=== PATIENT | female | born 1990 | race Caucasian/White ===

== ENCOUNTER 2017-06-16 08:53 | Day surgery (SDC) | payer OTHER ==
[~2017-06-16 08:53] MED LIST: RINGER'S SOLUTION,LACTATED 1,000 ML IV PRN; ceFAZolin SODIUM 2 GM in DEXTROSE 5 % IN WATER 50 ML IV PRN
[2017-06-16] MEDS ORDERED: RINGER'S SOLUTION,LACTATED 1,000 ML IV ONE ×2 (09:15→11:40)
[2017-06-16] MEDS ORDERED: BUPIVACAINE HCL/EPINEPHRINE 10 ML VIAL IJ ONE (11:30)
[2017-06-16] MEDS ORDERED: RINGER'S SOLUTION,LACTATED 1,000 ML IV PRN (12:09)
[2017-06-16] MEDS: oxyCODONE HCL/ACETAMINOPHEN 1 TAB TABLET PO ONE ×2 (12:50→14:25)
[2017-06-16] MEDS ORDERED: ONDANSETRON HCL/PF 2 MG/ML VIAL IV ONE (13:00)
[2017-06-16] MEDS ORDERED: oxyCODONE HCL/ACETAMINOPHEN 1 TAB TABLET PO ONE (13:00)
[2017-06-16] MEDS ORDERED: oxyCODONE HCL/ACETAMINOPHEN 1 TAB TABLET ONE (14:22)
[2017-06-16 15:12] VITALS: BP 119/74
--- NOTE | 2017-06-16 17:47 | OR ---
Operative Report - Dictated Report Narrative: DATE OF OPERATION: 06/16/2017 PREOPERATIVE DIAGNOSIS: GERD symptoms. Biliary dyskinesia POSTOPERATIVE DIAGNOSIS: Normal EGD. Gallbladder pathology pending OPERATION: EGD with biopsy. Laparoscopic cholecystectomy SURGEON: JUAN Franco MD ANESTHESIA Gen. endotracheal Mallorie Salas CRNA INDICATIONS FOR PROCEDURE: The patient is a 26-year-old male referred by Dr. Mckinney. She has a 3 month history of pain in the right upper quadrant which radiates through to the back. Ultrasound revealed slightly thickened wall and a suggestion of sludge. Hepatobiliary scan reveals low ejection fraction of 9% . The patient also has significant GERD symptoms. FINDINGS: Normal EGD (CLOtest pending). Adhesions to the undersurface of the umbilicus and the undersurface of the right lobe of the liver. Gallbladder pathology pending NARRATIVE OF PROCEDURE: The patient was identified preoperatively. Prior to the administration of anesthetic a multidisciplinary timeout observed. 2 g of intravenous Ancef were administered. With the patient in the supine position, SCDs were placed, and general endotracheal anesthetic administered. EGD: The flexible fiberoptic gastroscope was advanced alongside the endotracheal tube into the posterior pharynx which appeared normal. The tube was seen to be in good position in those portions of the supraglottic larynx visualized appeared normal. The scope was advanced under direct vision into a normal- appearing esophagus. The esophagus appeared normal down to the gastroesophageal junction where the mucosal transition was sharp and minimally erythematous. The stomach was entered and insufflated with air. The gastric mucosa appeared grossly normal, there were no geovanna ulcerations or neoplastic lesions appreciated including a retroflex view of the gastric fundus. The scope was redirected toward the pylorus which was patent. The scope was advanced into the duodenal bulb which appeared normal. The scope was advanced further to the horizontal portion of the duodenum which appeared normal, specifically the villous architecture appeared well preserved and clear bile was present. The scope was slowly withdrawn through the duodenal bulb with confirmation and no active ulcer was present. The scope was withdrawn into the stomach and a hostess party sales representative biopsy obtained and submitted for CLOtest. The biopsy site appeared hemostatic. The insufflated air was removed from the stomach, the scope withdrawn from the patient, in this portion the procedure terminated. LAPAROSCOPIC CHOLECYSTECTOMY: The patient's adomen was prepped with Betadine solution and a generous operating field outlined with 4 sterile towels. The remainder the patient was covered with a sterile disposable drape. An infraumbilical skin incision was made. Dissection was carried along the umbilical stalk until the fascia of the linea alba was encountered. This was incised. The peritoneum was then elevated and incised to allow entry into the abdomen under direct vision. A Hussan cannula was placed, and the abdomen insufflated with CO2. The laparoscopic camera was introduced and the abdomen briefly explored. Those portions of the liver, stomach, colon and small bowel visualized appeared normal. There were omental adhesions to the undersurface of the anterior abdominal wall below the umbilicus. The gallbladder was not immediately visible. Next under direct vision 3 additional working ports were inserted through separate skin incisions, one in the subxiphoid, one in the right upper quadrant, and one in the right flank. The apex of the gallbladder was grasped and retracted cephalad. There were adhesions of omentum to the undersurface of the right lobe of the liver, however the gallbladder appeared grossly normal. The area of the cystic duct was developed. The cystic duct was dissected free for a sufficient distance for confident identification. It was doubly clipped and divided. The cystic artery was identified doubly clipped and divided. The gallbladder was then removed from the liver bed by retrograde electrocautery dissection. Prior to severing the last attachments of the gallbladder the liver bed was inspected and found to be hemostatic with no evidence of bile leak. The previously placed clips were seen to be intact. The right upper quadrant was suctioned clean. The last attachments of the gallbladder were divided. It was placed in an Endobag and parked in the right upper quadrant. Inspection of the area below the umbilicus revealed omental adhesions, however they did not appear to predisposed to cause internal herniation and were left intact. The smaller working ports were withdrawn under direct vision to ensure entry site hemostasis. The gallbladder was removed in conjunction with the Hussan cannula. The pneumoperitoneum was allowed to escape, and after receiving a correct sponge needle and instrument count attention was turned to closing the abdomen. The fascia and peritoneum at the umbilicus were approximated with interrupted sutures of #1 Vicryl. Skin incisions were approximated with interrupted vertical mattress sutures of 4-0 nylon. The operative sites were washed and dried. Dressings of Bactroban ointment and large Band-Aids were applied to the small port sites. The umbilical incision was dressed with Bactroban ointment, 2 x 2, large Band-Aid and Medipore tape. The operative procedure was terminated at this point. The patient tolerated the anesthetic and procedure well without complication. There was no measurable blood loss. The gallbladder was submitted to pathology. 0.5% Marcaine with epinephrine was used for local anesthetic infiltration. The patient was transferred to the recovery room awake, extubated, and in stable condition. The patient remained stable throughout a period of postoperative observation. She was able to tolerate po intake and was up without assistance. Her pain was controlled with po Percocet. Her dressings remained dry. I reviewed the operative findings with her and she was given copies of the photographs which appear in the medical record. The patient was discharged home with instructions not to lift and not to drive. She is to leave the current dressings dry and intact for 48 hours, but then may shower and change the dressings daily or as needed. She was given phone numbers to call prn signs of wound infection or hematoma. The patient was given a prescription for Percocet 5/325 mg #30 1-2 po Q4-6hrs prn pain. A return office appointment was made for 1 week. Reviewed and electronically signed
== END 2017-06-16 08:54 | disposition home or self-care (01) ==
LOC: AMB 08:53
PROVIDERS: ATTEND Surgery
PROC: 0DB68ZX Excision of Stomach, Via Natural or Artificial Opening Endoscopic, Diagnostic (ICD-10-PCS; principal; 2017-06-16 10:15)
PROC: 0FT44ZZ Resection of Gallbladder, Percutaneous Endoscopic Approach (ICD-10-PCS; 2017-06-16 10:15)
DX: K81.1 Chronic cholecystitis (principal); K82.8 Other specified diseases of gallbladder; Z68.27 Body mass index [BMI] 27.0-27.9, adult
CPT/HCPCS: 43239; 47562; 87081; J2405

== ENCOUNTER 2019-05-13 15:18 | Inpatient (IN) ==
[2019-05-13 16:15] LABS: Cocaine Ur Negative (NEGATIVE); Urine Barbiturate Negative (NEGATIVE); Urine Benzodiazepines Negative (NEGATIVE); Urine Opiates Negative (NEGATIVE); Urine PCP Negative (NEGATIVE); Urine THC Negative (NEGATIVE)
[2019-05-13] MEDS ORDERED: DEXTROSE 5%-LACTATED RINGERS 1,000 ML IV PRN (16:19)
[2019-05-13] MEDS ORDERED: OXYTOCIN/DEXTROSE 5%-WATER 30 UNITS/500 ML BAG IV ONE ×2 (16:29→19:02)
--- NOTE | 2019-05-13 16:46 | HP ---
Chief Complaint - Chief Complaint Date of Service: 05/13/19 Time of Service: 16:33 Chief Complaint: contractions History of Present Illness: 28 yo at 37 weeks presents to L&D in labor. Patient was seen in office today for routine OB visit and was noted to be dilated to 7cm/80/+1 with virtually no pain. This without complications. Rh positive Rubella immune GBS negative Medical History (Updated 03/12/19 @ 09:00 by Sourav Motley RN) Anemia affecting Onset Date: 02/01/162015 & 2019 - w/pregnancies Chronic pelvic pain in female Onset Date: 11/22/14 Generalized headaches Onset Date: ~2016 Appendicitis Onset Date: 10/31/12 Cellulitis of finger Onset Date: Unknown Dysmenorrhea Onset Date: 11/22/14 Dyspareunia due to medical condition in female Onset Date: 11/22/14 Fatigue Onset Date: 02/28/15 Hyperemesis gravidarum before end of 22 week gestation with carbohydrate depletion Onset Date: 09/14/15 Leg pain Onset Date: 02/28/15 Lightheadedness Onset Date: 11/22/14 Ovarian cyst Onset Date: Unknown Pneumonia Onset Date: Unknown Postcoital bleeding Onset Date: 11/22/14 Short cervix during in third trimester Onset Date: 02/27/16 Threatened premature labor in third trimester Onset Date: 02/27/16 Surgical History: Surgical History (Updated 02/27/18 @ 07:36 by Leyda Chang CMA) H/O adenoidectomy Onset Date: ~2013 H/O esophagogastroduodenoscopy Onset Date: 06/16/17 biopsy - [place] clotest negative History of colposcopy Onset Date: 12/13/14 for post coital bleeding History of laparoscopic appendectomy Onset Date: 10/31/12 [place] Hx laparoscopic cholecystectomy Onset Date: 06/16/17 [place] Hx of tonsillectomy Onset Date: ~01/2014 Family History: Family History (Updated 02/27/18 @ 07:39 by Leyda Chang CMA) Brother Alive and well Father Bipolar disorder Lung cancer Mother Hypertension CVA (cerebral vascular accident) possible History of cholecystectomy Grandfather , maternal Gallbladder cancer Grandfather , paternal Liver cancer Grandmother Hypertension maternal Sister Hypothyroidism 3 sisters - 2 with Hypothyroidism Social History: (Last Reviewed 05/13/19 @ 15:45 by Josselyn Dwyer RN) Social History: adopted: No half-way: No Marital status: household members: children, spouse number of children: 1 current occupational status: employed current occupation: [employer] current occupational exposures/hazards: No Highest education level completed: some college, no degree Sexually Active: Yes Service: No Tobacco: Smoking Status: Never smoker Alcohol: alcohol intake: current alcohol intake frequency: holiday/special occasion details: No alcohol since +UPT Substance Use: substance use type: does not use Dietary Habits: caffeine: Yes caffeine comment: No caffeine w/ Type: carbonated beverages Exercise: frequency: does not exercise Yu/Moravian: agree to transfusion: Yes Review Of Systems (GEN) - Review of Systems Generalized/Overall Review: Present: No Symptoms Reported EENTM: Present: No Symptoms Reported Respiratory: Present: No Symptoms Reported Cardiac: Present: No Symptoms Reported Abdominal: Present: Other - GERD Genitourinary: Present: No Symptoms Reported Musculoskeletal: Present: No Symptoms Reported Neurological: Present: No Symptoms Reported Skin: Present: No Symptoms Reported Allergies/Adverse Reactions: Allergies Allergy/AdvReac Type Severity Reaction Status Date / Time adhesive tape AdvReac Mild SWELLING Verified 05/13/19 14:51 AT SITE, RED, ITCH levofloxacin [From Levaquin] AdvReac Mild PARANOIA Verified 05/13/19 14:51 Home Medications: HOME MEDICATIONS ranitidine 150 mg tablet 150 mg PO DAILY 12/28/18 [Last Taken Unknown] ferrous sulfate 325 mg (65 mg iron) tablet 325 mg PO DAILY #30 tab 03/12/19 [Last Taken Unknown] Vits96/Iron Fum/Folic [ S] 1 tab PO DAILY 05/13/19 [Last Taken Unknown] Exam - Exam Vital Signs: Vital Signs - Last Taken Temp 36.4 C 05/13/19 15:30 Pulse 95 05/13/19 15:30 Resp 14 05/13/19 15:30 BP 127/72 05/13/19 15:30 Pulse Ox 98 05/13/19 15:30 Constitutional: Present: Alert, Oriented x3, Cooperative, No distress ENT Exam: Present: hearing grossly normal Respiratory: Present: lungs clear Cardiovascular/Chest: Present: regular rate, rhythm, no edema Abdomen: Present: soft, nontender, no rebound tenderness, other - gravid /Rectal: Present: Other - 8/90/+1 Extremity: Present: no pedal edema, no calf tenderness Skin Exam: Present: normal color, warm/dry, no cyanosis Lymphatic: Present: no adenopathy Neurologic: Present: alert, normal mood/affect, oriented x 3 Appearance: Present: appropriate appearance, appropriate insight Eye contact: Present: cooperative, good eye contact Thoughts: Present: normal thought pattern Diagnostic Studies: Laboratory Results Negative (NEGATIVE) 05/13/19 15:51 Negative (NEGATIVE) 05/13/19 15:51 Ur Phencyclidine Scrn Negative (NEGATIVE) 05/13/19 15:51 Urine Amphetamine Negative (NEGATIVE) 05/13/19 15:51 U Benzodiazepines Scrn Negative (NEGATIVE) 05/13/19 15:51 Negative (NEGATIVE) 05/13/19 15:51 Negative (NEGATIVE) 05/13/19 15:51 Assessment/Plan - Assessment/Plan (1) Labor established Assessment: Admit for labor. Patient plans to go natural. Problem: Acute
[2019-05-13] MEDS ORDERED: SENNOSIDES 8.6 MG TABLET PO PRN (19:02)
[2019-05-13] MEDS ORDERED: HYDROCORTISONE 30 APPL TUBE TP PRN (19:02)
[2019-05-13] MEDS ORDERED: IBUPROFEN 800 MG TABLET PO PRN (19:02)
[2019-05-13] MEDS ORDERED: BENZOCAINE/MENTHOL 81 SPRAY CAN TP PRN (19:02)
[2019-05-13] MEDS ORDERED: GLYCERIN/WITCH HAZEL LEAF 40 APPL BOX TP PRN (19:02)
[2019-05-13] MEDS ORDERED: BISACODYL 10 MG SUPP.RECT RC PRN (19:02)
--- NOTE | 2019-05-13 19:05 | OR ---
Operative Report - Dictated Report Narrative: Spontaneous vaginal delivery of vigorously crying viable male at 1842 on 05/13/2019 with Apgars 9 and 9, weighing 2937 g in SUDHAKAR position with tight nuchal cord x1. Cord clamping delayed approximately 1 minute Placenta delivered complete, intact, with three vessel cord Estimated blood loss: Less than 50 ml Anesthesia: None Lacerations: Right labial abrasion and 1 cm first-degree vaginal laceration with no repair needed.
[2019-05-13] MEDS: IBUPROFEN 800 MG TABLET PO PRN (19:34)
[2019-05-13] MEDS: oxyCODONE HCL/ACETAMINOPHEN 1 TAB TABLET PO PRN (20:32)
[2019-05-14] MEDS: oxyCODONE HCL/ACETAMINOPHEN 1 TAB TABLET PO PRN ×2 (01:12→13:00)
[2019-05-14] MEDS: DOCUSATE SODIUM 100 MG CAPSULE PO SCH ×3 (01:12→13:00)
[2019-05-14] MEDS: IBUPROFEN 800 MG TABLET PO PRN ×2 (01:13→13:00)
--- NOTE | 2019-05-14 07:48 | PN ---
Subjective - Date and Time Seen Date: 05/14/19 Time: 07:47 Objective - Vitals Vitals: Last Vital Signs Temp 36.2 C 05/14/19 01:00 Pulse 65 05/14/19 01:00 Resp 18 05/14/19 01:00 BP 115/61 05/14/19 01:00 Pulse Ox 99 05/14/19 01:00 Patient complains of normal cramping. Lochia wnl abdomen - soft, nontender Uterus -firm, at umbilicus - 1 no calf tenderness Impression: day #1 - s/p spontaneous vaginal delivery. Plan: Continue routine care Assessment/Plan - Problems/Diagnosis (1) Labor established Problem: Acute
--- NOTE | 2019-05-14 07:52 | PN ---
Progess Note - Interim Date: 05/14/19 Time: 07:51 History for MU History for MU Definition: * The number of deliveries resulting in a live the patient experienced prior to current hospitalization * The previous delivery of live twins or any live multiple gestation is considered one live event. *If primagravida or nulliparous is documented select zero for the number of previous live births. Live Events: Live Events: 1
[2019-05-14] MEDS: FERROUS SULFATE 325 MG TABLET PO SCH ×2 (11:55→13:00)
[2019-05-14] MEDS: PRENATAL VITS96/IRON FUM/FOLIC 1 TAB TABLET PO SCH ×2 (11:56→12:59)
--- NOTE | 2019-05-14 13:11 | PN ---
Progesrobert Note - Interim Date: 05/14/19 Time: 13:10 Narrative: 05/14/19 13:10 Patient's baby transferred to [facility] for RDS. Mother discharged early to be with baby. D/c instructions given.
[2019-05-14 14:05] VITALS: BP 113/64
== END 2019-05-14 15:45 | disposition home or self-care (01) | DRG 807 ==
LOC: LAB 15:18 → OBCLINIC 15:18 → OB 16:28
PROVIDERS: ADMIT Obstetrics & Gynecology; ATTEND Obstetrics & Gynecology
CPT/HCPCS: 59025; 80307